=== PATIENT | female | born 2000 | race Caucasian/White ===

== ENCOUNTER 2020-11-03 20:09 | Outpatient (CLI) | payer OTHER ==
[~2020-11-03 20:09] MED LIST: CLARITIN 10MG T10 MG PO; COLACE 100MG C100 MG PO; IBUPROFEN600 MG PO; NORCO 7.5-3251 EACH PO; PHENERGAN 25 MG25 M1 PO; PRENATAL TABLE1 EAC2 PO; ZANTAC 7575 MG PO
== END 2020-11-03 23:21 | disposition home or self-care (01) ==
LOC: GENOP 20:09
DX: O47.1 False labor at or after 37 completed weeks of gestation (principal); Z88.0 Allergy status to penicillin; Z79.899 Other long term (current) drug therapy; Z3A.38 38 weeks gestation of pregnancy
CPT/HCPCS: 81001; G0463

== ENCOUNTER 2020-11-07 04:57 | Inpatient (IN) | payer OTHER ==
[~2020-11-07] VITALS: Ht 152.4 cm; Wt 59.0 kg
[2020-11-07] MEDS ORDERED: ZOLOFT100 MG PO (06:21)
[2020-11-07 06:26] LABS: HEMOGLOBIN 12.8 gm/dl (12.3-15.3); RED BLOOD COUNT 4.07 M/UL (4.00-5.10); WHITE BLOOD COUNT 12.7 K/UL (4.5-11.0)
[2020-11-07] MEDS ORDERED: TYLENOL EXTRA500 MG PO (10:35)
[2020-11-07] MEDS ORDERED: DOCUSATE SODIU100 MG PO (10:35)
[2020-11-07] MEDS ORDERED: IBUPROFEN800 MG PO (10:35)
[2020-11-08 06:49] LABS: HEMOGLOBIN 11.1 gm/dl (12.3-15.3)
== END 2020-11-08 13:54 | disposition home or self-care (01) | DRG 807 ==
LOC: GENOP 04:57 → OB 06:43 → GENOP 06:44 → OB 06:44
PROVIDERS: Obstetrics & Gynecology; ADMIT Obstetrics & Gynecology
PROC: 10E0XZZ Delivery of Products of Conception, External Approach (ICD-10-PCS; principal; 2020-11-07)
PROC: 10907ZC Drainage of Amniotic Fluid, Therapeutic from Products of Conception, Via Natural or Artificial Opening (ICD-10-PCS; 2020-11-07)
DX: O99.344 Other mental disorders complicating childbirth (principal); Z37.0 Single live birth; F32.9 Major depressive disorder, single episode, unspecified; F41.8 Other specified anxiety disorders; Z3A.38 38 weeks gestation of pregnancy
CPT/HCPCS: 80307; 81001; 82800; 85014; 85018; 85025; J0595; J2210; J2590; U0002